=== PATIENT | male | born 1985 | race Caucasian/White ===

== ENCOUNTER 2017-11-16 13:02 | Emergency (ER) | payer OTHER ==
[2017-11-16] MEDS ORDERED: KETOROLAC 30 MG/ML 1 ML VIAL IVP STA (13:41)
[2017-11-16] MEDS ORDERED: RX INFO: IV CONTRAST WAS GIVEN 1 EACH MISC MISCELLANE PRN (13:41)
[2017-11-16] MEDS ORDERED: SODIUM CHLORIDE 0.9% 1,000 ML IV STA ×2 (13:41)
[2017-11-16] MEDS ORDERED: ONDANSETRON 4 MG/2 ML VIAL IVP STA (13:41)
[2017-11-16] MEDS ORDERED: FAMOTIDINE 20 MG/2 ML VIAL IV STA (13:44)
--- NOTE | 2017-11-16 13:49 | ED ---
Abdominal Pain HPI - General Chief Complaint: Abdominal Pain Stated Complaint: abdominal pain-sent [facility] Time Seen by Provider: 11/16/17 13:34 Source: patient Mode of arrival: ambulatory Limitations: no limitations - History of Present Illness Initial Comments: This 32-year-old white male presents with complaint of some diffuse abdominal pain which is been present for the last 3 days. He has had some minimal nausea , vomiting, and diarrhea. The symptoms seem to be somewhat worse with eating. He still is tolerating food and fluids but his appetite is somewhat decreased. He denies any fevers or chills. He was seen at the urgent care and sent to the ER for further evaluation. He denies any previous similar symptoms. He has never had any abdominal surgeries. No other complaints or modifying factors. - Related Data Home Medications Medication Instructions Recorded Confirmed Albuterol Inhaler [Ventolin Hfa 2 puff INHALATION RT-Q6H PRN 11/16/17 11/16/17 Inhaler] Budesonide-Formot 160-4.5 Mcg 2 puff INHALATION RT-BID 11/16/17 11/16/17 [Symbicort 160-4.5 Mcg Inhaler] Nicotine 21Mg/24Hr Patch [Habitrol 1 patch TRANSDERM DAILY 11/16/17 11/16/17 21Mg/24Hr Patch] Previous Rx's Medication Instructions Recorded Dicyclomine [Bentyl] 20 mg PO QID PRN #20 tablet 11/16/17 Ondansetron [Zofran ODT] 8 mg PO Q8HR PRN #12 tab 11/16/17 Allergies Allergy/AdvReac Type Severity Reaction Status Date / Time No Known Allergies Allergy Verified 11/16/17 13:48 Review of Systems ROS Statement: Those systems with pertinent positive or pertinent negative responses have been documented in the HPI. ROS Other: All systems not noted in ROS Statement are negative. Past Medical History Past Medical History: No Reported History History of Any Multi-Drug Resistant Organisms: None Reported Past Surgical History: No Surgical Hx Reported Past Psychological History: No Psychological Hx Reported Smoking Status: Current every day smoker Past Alcohol Use History: None Reported Past Drug Use History: None Reported General Exam - General Exam Comments Initial Comments: GENERAL: The patient is well nourished and well hydrated. VITAL SIGNS: Heart rate, blood pressure, respiratory rate reviewed as recorded in nurse's notes. EYES: Pupils are round and reactive. Extraocular movements are intact. No conjunctival / lid redness or swelling. ENT: No external evidence of injury, swelling, or ecchymosis. Airway is patent. Throat is clear. NECK: Nontender. No swelling or evidence of injury. No subcutaneous emphysema. Trachea is midline. No thyroid mass. HEART: Regular rate and rhythm. Good peripheral pulses. LUNGS/CHEST: Breath sounds clear and equal bilaterally. No rales, rhonchi, or wheezes. No ecchymosis, subcutaneous emphysema, or tenderness. ABDOMEN: There is mild diffuse abdominal tenderness without any distention. No palpable masses or organomegaly. No peritoneal signs. No abdominal wall swelling or ecchymosis. EXTREMITIES: No extremity tenderness. Normal muscle tone and function. No thoracolumbar tenderness. NEUROLOGIC: Sensation is grossly intact. Cranial nerve exam reveals face is symmetrical, tongue is midline, speech is clear. SKIN: No abrasions or ecchymosis is noted. No induration or masses noted. PSYCHIATRIC: Alert and oriented. Appropriate behavior and judgment. Limitations: no limitations Course Vital Signs 11/16/17 11/16/17 13:21 15:36 Temperature 98.3 F 98.2 F Pulse Rate 77 68 Respiratory 18 18 Rate Blood Pressure 140/73 104/69 O2 Sat by Pulse 97 100 Oximetry Medical Decision Making - Medical Decision Making The patient was seen and examined. All diagnostics were reviewed. He does receive some Toradol as well as some IV fluids and Zofran intravenously. He is feeling markedly improved on recheck. The laboratory analysis is also essentially within normal limits. The patient also had a computed tomography scan of the abdomen and pelvis done which shows enteritis. There is no evidence of appendicitis. Is felt that he likely does have a gastroenteritis and is counseled regarding this extensively. Return parameters are discussed. - Lab Data Result diagrams: 11/16/17 14:14 11/16/17 14:14 Lab Results 11/16/17 11/16/17 11/16/17 Range/Units 14:14 14:14 15:42 WBC 8.7 (3.8-10.6) k/uL RBC 4.90 (4.30-5.90) m/uL Hgb 14.8 (13.0-17.5) gm/dL Hct 42.7 (39.0-53.0) % MCV 87.2 (80.0-100.0) fL MCH 30.3 (25.0-35.0) pg MCHC 34.7 (31.0-37.0) g/dL RDW 12.2 (11.5-15.5) % Plt Count 207 (150-450) k/uL Neutrophils % 58 % Lymphocytes % 28 % Monocytes % 4 % Eosinophils % 9 % Basophils % 1 % Neutrophils # 5.0 (1.3-7.7) k/uL Lymphocytes # 2.4 (1.0-4.8) k/uL Monocytes # 0.3 (0-1.0) k/uL Eosinophils # 0.8 H (0-0.7) k/uL Basophils # 0.1 (0-0.2) k/uL Sodium 139 (137-145) mmol/L Potassium 4.6 (3.5-5.1) mmol/L Chloride 105 (98-107) mmol/L Carbon Dioxide 22 (22-30) mmol/L Anion Gap 12 mmol/L BUN 14 (9-20) mg/dL Creatinine 0.87 (0.66-1.25) mg/dL Est GFR (CKD-EPI)AfAm >90 (>60 ml/min/1.73 sqM) Est GFR (CKD-EPI)NonAf >90 (>60 ml/min/1.73 sqM) Glucose 86 (74-99) mg/dL Calcium 9.2 (8.4-10.2) mg/dL Total Bilirubin 0.4 (0.2-1.3) mg/dL AST 31 (17-59) U/L ALT 35 (21-72) U/L Alkaline Phosphatase 95 (38-126) U/L Total Protein 6.7 (6.3-8.2) g/dL Albumin 4.0 (3.5-5.0) g/dL Amylase 44 (30-110) U/L Lipase 77 (23-300) U/L Urine Color Light Yellow Urine Appearance Clear (Clear) Urine pH 5.5 (5.0-8.0) Urine Protein Negative (Negative) Urine Glucose (UA) Negative (Negative) Urine Ketones Negative (Negative) Urine Blood Negative (Negative) Urine Nitrite Negative (Negative) Urine Bilirubin Negative (Negative) Urine Urobilinogen <2.0 (<2.0) mg/dL Ur Leukocyte Esterase Negative (Negative) Disposition Clinical Impression: Abdominal pain, Nausea and vomiting, Diarrhea, Gastroenteritis Disposition: HOME SELF-CARE Condition: Good Instructions: Abdominal Pain (ED), Gastroenteritis (ED) Prescriptions: Dicyclomine [Bentyl] 20 mg PO QID PRN #20 tablet PRN Reason: Pain Ondansetron [Zofran ODT] 8 mg PO Q8HR PRN #12 tab PRN Reason: Nausea Referrals: Jennifer Mckeon MD [Primary Care Provider] - 1-2 days Time of Disposition: 16:08
[2017-11-16 14:32] LABS: Basophils # (A) 0.1 k/uL (0-0.2); Basophils % (A) 1 %; Eosinophils # (A) 0.8 k/uL (0-0.7); Eosinophils % (A) 9 %; HCT 42.7 % (39.0-53.0); HGB 14.8 gm/dL (13.0-17.5); Lymphocytes # (A) 2.4 k/uL (1.0-4.8); Lymphocytes % (A) 28 %; MCH 30.3 pg (25.0-35.0); MCHC 34.7 g/dL (31.0-37.0); MCV 87.2 fL (80.0-100.0); Mean Platelet Volume 7.2; Monocytes # (A) 0.3 k/uL (0-1.0); Monocytes % (A) 4 %; Neutrophils % (A) 58 %; Platelet Count 207 k/uL (150-450); RDW 12.2 % (11.5-15.5); WBC 8.7 k/uL (3.8-10.6)
[2017-11-16 14:41] LABS: ALT 35 U/L (21-72); AST 31 U/L (17-59); Alkaline Phosphatase 95 U/L (38-126); Amylase 44 U/L (30-110); Anion Gap 12 mmol/L; Blood Urea Nitrogen 14 mg/dL (9-20); Calcium 9.2 mg/dL (8.4-10.2); Carbon Dioxide 22 mmol/L (22-30); Chloride 105 mmol/L (98-107); Glucose 86 mg/dL (74-99); Lipase 77 U/L (23-300); Potassium 4.6 mmol/L (3.5-5.1); Sodium 139 mmol/L (137-145); Total Bilirubin 0.4 mg/dL (0.2-1.3); Total Protein 6.7 g/dL (6.3-8.2)
--- NOTE | 2017-11-16 15:43 | CT ---
EXAMINATION TYPE: CT abdomen pelvis w con DATE OF EXAM: 11/16/2017 COMPARISON: NONE HISTORY: Generalized abdominal pain with nausea, vomiting and diarrhea x [address] DLP: 1646 mGycm Automated exposure control for dose reduction was used. TECHNIQUE: Helical acquisition of images from the lung bases through the pelvis have been completed. CONTRAST: Performed without Oral Contrast and with IV Contrast, patient injected with 100 mL of Isovue M300. FINDINGS: LUNG BASES: No significant abnormality is appreciated. AORTA: No significant abnormality is appreciated. LIVER/GB: No significant abnormality is appreciated. PANCREAS: No significant abnormality is seen. SPLEEN: Spleen is enlarged measuring slightly greater than 13 cm in greatest dimension. ADRENALS: No significant abnormality is seen. KIDNEYS: No significant abnormality is seen. REPRODUCTIVE ORGANS: No significant abnormality is seen BOWEL: There are some fluid-filled loops of small bowel without bowel distention, some mild small natty wel wall thickening is present, appendix is normal. FREE AIR: No Free Air visible. ASCITES: None visible. PELVIC ADENOPATHY: None visualized. RETROPERITONEAL ADENOPATHY: No Retroperitoneal Adenopathy visible. URINARY BLADDER: No significant abnormality is seen. OSSEOUS STRUCTURES: No significant abnormality is seen. IMPRESSION: FINDINGS LIKELY REPRESENT ENTERITIS. SPLENOMEGALY.
[2017-11-16 15:57] LABS: Appearance,Urine Clear (Clear); Bilirubin,Urine Negative (Negative); Blood,Urine Negative (Negative); Color,Urine Light Yellow; Glucose,Urine (UA) Negative (Negative); Ketones,Urine Negative (Negative); Leukocyte Esterase,Urine Negative (Negative); Nitrite,Urine Negative (Negative); PH, Urine 5.5 (5.0-8.0); Protein,Urine Negative (Negative); Urobilinogen,Urine <2.0 mg/dL (<2.0)
[2017-11-16 16:05] LABS: Specific Gravity,Urine >1.050 (1.001-1.035)
[2017-11-16 16:12] VITALS: BP 139/82; PULSE 66; RESP 16; TEMP 98.1
== END 2017-11-16 16:16 | disposition home or self-care (01) ==
LOC: EC 13:02
DX: K52.9 Noninfective gastroenteritis and colitis, unspecified (principal); F17.200 Nicotine dependence, unspecified, uncomplicated; Z79.51 Long term (current) use of inhaled steroids; Z79.899 Other long term (current) drug therapy
CPT/HCPCS: 36415; 80053; 82150; 83690; 85025; 81003; 74177; 99284; 96374; 96375 ×2; 96361 ×2; J2405; J1885; Q9967

== ENCOUNTER 2019-05-11 09:55 | Emergency (ER) | payer OTHER ==
[2019-05-11 10:04] VITALS: TEMP 98.1
--- NOTE | 2019-05-11 10:28 | ED ---
Wound/Laceration HPI - General Chief Complaint: Wound/Laceration Stated Complaint: Hand laceration Time Seen by Provider: 05/11/19 10:04 Source: patient Mode of arrival: ambulatory Limitations: no limitations - History of Present Illness Initial Comments: Patient is a 34-year-old male presenting to the emergency Department with complaints of a laceration on his left hand that happened last night. Patient states he was at work last night, cutting pieces of foam when he held a piece with his left hand and accidentally slipped and cut the dorsal aspect of his left hand with a bread knife. Patient is right handed. Patient states they have a nurse line that they call at work and they recommended him to be seen within 24 hours. Patient states urgent care was closing last night so he waited till this morning to go to urgent care which sent him to the ER. Bleeding is controlled at this time. Patient denies being on blood thinners. Patient sta geri he is unable to straighten his left middle finger. The urgent care did clean his wound today. Patient's last tetanus vaccine was approximately 4-5 years ago. Patient has no other complaints at this time. Patient denies fever, chills, nausea, vomiting. Upon arrival to ER, vital signs are stable. - Related Data Home Medications Medication Instructions Recorded Confirmed Ibuprofen [Motrin Ib] 800 mg PO Q6H PRN 05/11/19 05/11/19 Previous Rx's Medication Instructions Recorded Cephalexin [Keflex] 500 mg PO Q6HR 5 Days #20 cap 05/11/19 Allergies Allergy/AdvReac Type Severity Reaction Status Date / Time No Known Allergies Allergy Verified 05/11/19 10:15 Review of Systems ROS Statement: Those systems with pertinent positive or pertinent negative responses have been documented in the HPI. ROS Other: All systems not noted in ROS Statement are negative. Past Medical History Past Medical History: No Reported History History of Any Multi-Drug Resistant Organisms: None Reported Past Surgical History: No Surgical Hx Reported Past Psychological History: No Psychological Hx Reported Smoking Status: Current every day smoker Past Alcohol Use History: None Reported Past Drug Use History: None Reported General Exam - General Exam Comments Initial Comments: GENERAL: Well-appearing, well-nourished and in no acute distress. HEAD: Atraumatic, normocephalic. EYES: Pupils equal round and reactive to light, extraocular movements intact, sclera anicteric, conjunctiva are normal. ENT: TMs normal, nares patent, oropharynx clear without exudates. Moist mucous membranes. NECK: Normal range of motion, supple without lymphadenopathy or JVD. LUNGS: Breath sounds clear to auscultation bilaterally and equal. No wheezes rales or rhonchi. HEART: Regular rate and rhythm without murmurs, rubs or gallops. ABDOMEN: Soft, nontender, normoactive bowel sounds. No guarding, no rebound. No masses appreciated. : Deferred EXTREMITIES: Patient is unable to extend his left middle finger secondary to laceration. Patient also has increase in pain with active flexion of the fingers. There is mild swelling on the dorsal aspect of the left hand. No surrounding erythema. No clubbing or cyanosis. NEUROLOGICAL: Cranial nerves II through XII grossly intact. Normal speech, normal gait. PSYCH: Normal mood, normal affect. SKIN: Warm, Dry, normal turgor, no rashes. Patient has 1 cm laceration to the dorsal aspect of the left hand just proximal to the third MCP joint. No active bleeding. Limitations: no limitations Course Vital Signs 05/11/19 05/11/19 09:57 12:47 Temperature 98.1 F Pulse Rate 89 70 Respiratory 18 16 Rate Blood Pressure 140/93 129/84 O2 Sat by Pulse 98 Oximetry Procedures - Laceration Laceration #1 Consent Obtained: verbal consent Indication: laceration Site: hand (Left hand, dorsal aspect) Size (cm): 1 Description: linear Depth: simple, single layer Anesthetic Used: lidocaine 1% Anesthesia Technique: local infiltration Amount (mls): 2 Pre-repair: irrigated extensively Type of Sutures: nylon Size of Sutures: 5-0 Number of Sutures: 2 Technique: simple, interrupted Patient Tolerated Procedure: well Additional Comments: There is concerned for underlying tendon injury, sutures were placed loosely. - Orthopedic Splinting/Casting Injury #1 Side: left Upper Extremity Injury Location: hand Upper Extremity Immobilizer: finger (other) (Splint was applied to the left hand to keep the first 2 fingers extended.) Medical Decision Making - Medical Decision Making Patient is a 34-year-old male presenting with a 1 cm laceration to the dorsal aspect of his left hand just proximal to the third MCP joint. Patient was at work and accidentally sliced his hand with a bread knife. On exam bleeding is controlled at this time. Patient is not able to extend his left middle finger and has pain with flexion. Patient's wound was soaked with Betadine and water and irrigated extensively. Patient's wound was closed loosely with 2 sutures. Patient tolerated procedure well. Patient was also placed in a left hand splint to keep the first 2 digits extended. Patient reports improvement in symptoms with the splint applied. Case was discussed with Dr. Ace who will see him in the office tomorrow. Patient is stable for discharge today. Patient will be started on Keflex. Return parameters were discussed with the patient and he verbalized understanding. Case discussed with Dr. Noonan. Disposition Clinical Impression: Laceration of left hand involving tendon Disposition: HOME SELF-CARE Condition: Stable Instructions (If sedation given, give patient instructions): Laceration (ED), Tendon Laceration (ED) Additional Instructions: Please return to the Emergency Department if symptoms worsen or any other concerns. Follow-up with Dr. Ace as discussed. Take antibiotics as prescribed. Prescriptions: Cephalexin [Keflex] 500 mg PO Q6HR 5 Days #20 cap Is patient prescribed a controlled substance at d/c from ED?: No Referrals: None,Stated [Primary Care Provider] - 1-2 days Anirudh Ace MD [STAFF PHYSICIAN] - 1-2 days
[2019-05-11] MEDS ORDERED: LIDOCAINE 1% INJ 10MG/ML (20 ML MDV) SQ ONE (10:48)
--- NOTE | 2019-05-11 11:09 | XR ---
EXAMINATION TYPE: XR hand limited LT DATE OF EXAM: 05/11/2019 CLINICAL HISTORY: Laceration injury with pain. TECHNIQUE: Frontal and lateral images of the left hand are obtained. COMPARISON: None. FINDINGS: There is no acute fracture/dislocation evident in the left hand. Some mild narrowing invol ving the PIP joints is present. The overlying soft tissue appears unremarkable without radiodense fo reign body seen. IMPRESSION: As above.
[2019-05-11 12:49] VITALS: BP 129/84; PULSE 70; RESP 16
== END 2019-05-11 12:49 | disposition home or self-care (01) ==
LOC: EC 09:55
DX: S66.922A Laceration of unspecified muscle, fascia and tendon at wrist and hand level, left hand, initial encounter (principal); F17.200 Nicotine dependence, unspecified, uncomplicated; W26.0XXA Contact with knife, initial encounter; Y92.69 Other specified industrial and construction area as the place of occurrence of the external cause; Y99.0 Civilian activity done for income or pay
CPT/HCPCS: 73120; 99283; 12001; J2001